=== PATIENT | male | born 1950 | race Caucasian/White ===

== ENCOUNTER → 2022-05-02 | Outpatient (CLI) | payer MEDICARE, BC | LOC: LAB 08:32 | PROVIDERS: ATTEND Internal Medicine Interventional Cardiology | DX: Z01.818 Encounter for other preprocedural examination (principal); I35.0 Nonrheumatic aortic (valve) stenosis; Z20.822 Contact with and (suspected) exposure to COVID-19 | CPT/HCPCS: 0223U; 36415 ==

== ENCOUNTER → 2022-05-09 | Outpatient (CLI) | payer MEDICARE, BC | LOC: LAB 08:33 | PROVIDERS: ATTEND Internal Medicine Interventional Cardiology | DX: Z01.818 Encounter for other preprocedural examination (principal); I35.8 Other nonrheumatic aortic valve disorders; I25.10 Atherosclerotic heart disease of native coronary artery without angina pectoris; I48.0 Paroxysmal atrial fibrillation; Z20.822 Contact with and (suspected) exposure to COVID-19 | CPT/HCPCS: 0223U; 36415 ==

== ENCOUNTER 2022-05-11 09:35 | Emergency (ER) | payer MEDICARE, BC ==
[~2022-05-11] VITALS: Ht 177.8 cm; Wt 95.3 kg
== END 2022-05-11 10:07 | disposition home or self-care (01) ==
LOC: ER 09:42
DX: I97.630 Postprocedural hematoma of a circulatory system organ or structure following a cardiac catheterization (principal); I10 Essential (primary) hypertension; E11.9 Type 2 diabetes mellitus without complications; E78.5 Hyperlipidemia, unspecified; I48.91 Unspecified atrial fibrillation; F41.9 Anxiety disorder, unspecified
CPT/HCPCS: 99282